=== PATIENT | male | born 1955 | race Caucasian/White ===

== ENCOUNTER → 2017-02-15 | Outpatient (CLI) | payer MEDICARE, MEDICAID ==
[~2017-02-15] MED LIST: LOPRESSOR25 MG PO; LORTAB NGTUBE; ZOCOR80 MG PO
== END | disposition short-term general hospital (02) ==
LOC: CLPAIN 10:22
DX: M54.5 Low back pain (principal)

== ENCOUNTER → 2017-02-25 | Outpatient (CLI) | payer MEDICARE, MEDICAID | END | disposition short-term general hospital (02) | LOC: CLNEUR 09:47 → RAD 10:42 → CLNEUR 13:47 → RAD 17:36 → EDSTATUS 17:37 → CLNEUR 17:38 | DX: M54.5 Low back pain (principal); G89.29 Other chronic pain ==

== ENCOUNTER 2017-02-27 18:16 | Emergency (ER) | payer MEDICARE, MEDICAID ==
[~2017-02-27] VITALS: Ht 182.9 cm; Wt 74.8 kg
[2017-04-24] MEDS ORDERED: LORTAB NGTUBE (00:47)
[2017-04-24] MEDS ORDERED: LOPRESSOR25 MG PO (00:48)
[2017-04-24] MEDS ORDERED: ZOCOR80 MG PO (00:50)
== END 2017-02-27 18:45 | disposition short-term general hospital (02) ==
LOC: ER 18:16
DX: G89.29 Other chronic pain (principal); M54.2 Cervicalgia; M54.9 Dorsalgia, unspecified
CPT/HCPCS: J1885